=== PATIENT | male | born 1955 | race Caucasian/White ===

== ENCOUNTER 2024-06-01 15:02 | Inpatient (IN) | payer OTHER ==
[2024-06-01 15:37] VITALS: BMI 42.5
[2024-06-01 17:01] LABS: EOS % 2.8 % (0-4.5); HEMATOCRIT 34.1 % (35.4-49); HEMOGLOBIN 11.6 GM/dL (11.7-16.9); LYMPH % 15.5 % (8-40); MCH 29.6 pg (25.7-33.7); MCHC 34.1 g/dl (32.0-35.9); MEAN CELL VOLUME 86.9 fl (80-96); MEAN PLT VOLUME 7.4 fl (7.5-11.1); MONO % 12.5 % (3.8-10.2); NEUT % 68.2 % (42.8-82.8); PLATELET COUNT 618 10^3/uL (134-434); RBC 3.92 M/mm3 (4.00-5.60); RDW 14.7 % (11.9-15.9); WHITE BLOOD COUNT 12.1 K/mm3 (4.0-10.0)
[2024-06-01] MEDS ORDERED: PIPERACILLIN/TAZOB 3.375 GM 3.375 GM/50 ML BAG IVPB ONE (17:09)
[2024-06-01 17:18] LABS: CHLORIDE 100 mmol/L (98-107); SODIUM 131 mmol/L (136-145)
[2024-06-01 17:20] LABS: ALBUMIN 3.1 g/dl (3.4-5.0); CALCIUM 9.3 mg/dL (8.5-10.1); CO2 22 mmol/L (21-32); GLUCOSE,RANDOM 92 mg/dL (74-106)
[2024-06-01 17:23] LABS: CREATININE 1.2 mg/dL (0.55-1.3); SGOT/AST 76 U/L (15-37); SGPT/ALT 37 U/L (13-61)
[2024-06-01 17:25] LABS: BILIRUBIN,TOTAL 0.9 mg/dL (0.2-1); TOT PROT 7.9 g/dl (6.4-8.2)
[2024-06-01] MEDS: PIPERACILLIN/TAZOB 3.375 GM 3.375 GM in DEXTROSE 5%-WATER - 50 ML IVPB ONE (17:25)
[2024-06-01 17:26] LABS: ALK PHOS 76 U/L (45-117)
[2024-06-01 17:28] LABS: ANION GAP 9 mmol/L (4-13); POTASSIUM 6.6 mmol/L (3.5-5.1)
[2024-06-01] MEDS ORDERED: VANCOMYCIN 1 GRAM (PRE-DOCKED) 1,000 MG/250 ML BAG IVPB ONE (18:05)
[2024-06-01] MEDS: VANCOMYCIN 1,000 MG in DEXTROSE 5%-WATER - 250 ML IVPB ONE (18:27)
[2024-06-01 19:10] LABS: POTASSIUM 4.5 mmol/L (3.5-5.1)
[2024-06-01 19:13] LABS: ALBUMIN 3.2 g/dl (3.4-5.0); BLOOD UREA NITROGEN 28.4 mg/dL (7-18); CALCIUM 9.4 mg/dL (8.5-10.1)
[2024-06-01 19:16] LABS: CREATININE 1.1 mg/dL (0.55-1.3)
[2024-06-01 19:18] LABS: BILIRUBIN,TOTAL 0.6 mg/dL (0.2-1); TOT PROT 7.3 g/dl (6.4-8.2)
[2024-06-01] MEDS: ENOXAPARIN NA (PORCINE) 40 MG/0.4 ML DISP.SYRIN SQ SCH (22:38)
[2024-06-02] MEDS: PIPERACILLIN/TAZOB 3.375 GM 50 ML IVPB SCH (02:05)
[2024-06-02 09:44] LABS: BASO % 1.5 % (0-2.0); EOS % 3.2 % (0-4.5); HEMATOCRIT 31.2 % (35.4-49); HEMOGLOBIN 10.7 GM/dL (11.7-16.9); LYMPH % 19.3 % (8-40); MCH 29.7 pg (25.7-33.7); MCHC 34.3 g/dl (32.0-35.9); MEAN CELL VOLUME 86.7 fl (80-96); MEAN PLT VOLUME 7.5 fl (7.5-11.1); MONO % 9.9 % (3.8-10.2); NEUT % 66.1 % (42.8-82.8); PLATELET COUNT 542 10^3/uL (134-434); RDW 14.6 % (11.9-15.9); WHITE BLOOD COUNT 9.3 K/mm3 (4.0-10.0)
[2024-06-02 10:09] LABS: POTASSIUM 4.3 mmol/L (3.5-5.1)
[2024-06-02 10:13] LABS: ALBUMIN 2.8 g/dl (3.4-5.0); BLOOD UREA NITROGEN 24.5 mg/dL (7-18); CALCIUM 9.2 mg/dL (8.5-10.1)
[2024-06-02 10:18] LABS: BILIRUBIN,TOTAL 0.6 mg/dL (0.2-1); TOT PROT 6.7 g/dl (6.4-8.2)
[2024-06-02 10:19] LABS: CREATININE 0.9 mg/dL (0.55-1.3)
[2024-06-02] MEDS: HYDROCHLOROTHIAZIDE 25 MG TABLET (FP) PO SCH (10:35)
[2024-06-02 15:11] VITALS: RESP 18
[2024-06-02] MEDS ORDERED: VANCOMYCIN 1 GM PREMIX - 1 GM/200 ML BAG IVPB SCH (18:00)
[2024-06-02] MEDS: PIPERACILLIN/TAZOB 4.5 GM 4.5 GM/100 ML BAG IVPB SCH (18:41)
[2024-06-03] MEDS: PIPERACILLIN/TAZOB 3.375 GM 3.375 GM in DEXTROSE 5%-WATER - 50 ML IVPB SCH (00:34)
[2024-06-03] MEDS: VANCOMYCIN 1 GM PREMIX - 1 GM/200 ML BAG IVPB SCH (00:35)
[2024-06-03 09:31] LABS: BASO % 1.8 % (0-2.0); EOS % 3.3 % (0-4.5); HEMATOCRIT 32.3 % (35.4-49); HEMOGLOBIN 10.9 GM/dL (11.7-16.9); LYMPH % 18.5 % (8-40); MCH 29.4 pg (25.7-33.7); MCHC 33.6 g/dl (32.0-35.9); MEAN CELL VOLUME 87.6 fl (80-96); MEAN PLT VOLUME 7.4 fl (7.5-11.1); MONO % 8.5 % (3.8-10.2); NEUT % 67.9 % (42.8-82.8); PLATELET COUNT 557 10^3/uL (134-434); RBC 3.69 M/mm3 (4.00-5.60); RDW 14.7 % (11.9-15.9); WHITE BLOOD COUNT 10.6 K/mm3 (4.0-10.0)
[2024-06-03 09:46] LABS: POTASSIUM 4.4 mmol/L (3.5-5.1)
[2024-06-03 09:59] LABS: CALCIUM 9.4 mg/dL (8.5-10.1)
[2024-06-03 10:00] LABS: BLOOD UREA NITROGEN 20.4 mg/dL (7-18)
[2024-06-03 10:03] LABS: CREATININE 0.8 mg/dL (0.55-1.3)
[2024-06-04 10:07] LABS: BASO % 1.3 % (0-2.0); EOS % 4.5 % (0-4.5); HEMATOCRIT 34.2 % (35.4-49); HEMOGLOBIN 11.3 GM/dL (11.7-16.9); LYMPH % 22.8 % (8-40); MCH 28.9 pg (25.7-33.7); MCHC 33.1 g/dl (32.0-35.9); MEAN CELL VOLUME 87.3 fl (80-96); MEAN PLT VOLUME 7.5 fl (7.5-11.1); MONO % 8.3 % (3.8-10.2); NEUT % 63.1 % (42.8-82.8); PLATELET COUNT 577 10^3/uL (134-434); RBC 3.92 M/mm3 (4.00-5.60); RDW 15.1 % (11.9-15.9)
[2024-06-05 08:49] VITALS: BP 113/69; PULSE 94; TEMP 98.1
== END 2024-06-05 13:40 | disposition home or self-care (01) | DRG 603 ==
LOC: JER 15:02 → JERBED 17:21 → OBSVTOIN 18:34 → J5S 21:05 → J6S 06-05 03:18
PROVIDERS: ADMIT Family Medicine; ATTEND Family Medicine
DX: L03.115 Cellulitis of right lower limb (principal); Z68.41 Body mass index [BMI] 40.0-44.9, adult; I87.2 Venous insufficiency (chronic) (peripheral); I10 Essential (primary) hypertension; E66.01 Morbid (severe) obesity due to excess calories
CPT/HCPCS: 36415; 73590-TC-RT-FY; 73610-TC-RT-FY; 73630-TC-RT-FY; 80048; 80053; 85025; 85651; 86140; 87070; 87205; 93005; 93010; 93971-TC; 99285-25; G0378